=== PATIENT | female | born 1960 | race African-American/Black ===

== ENCOUNTER 2018-10-28 10:21 | Emergency (ER) | payer BC ==
[2018-10-28] MEDS ORDERED: KEPPRA 1,000 MG/NS 0.75% 100ML 1,000 MG/100 ML BAG IV ONE (10:55)
--- NOTE | 2018-10-28 11:01 | Emergency Department Report ---
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 Patient brought to the emergency room via EMS for evaluation after seizure-like activity. Patient daughter described patient passing out and started jerking for approximately one minutes and then went to sleep. She also described that her eyes rolling back. Patient now is alert, oriented 3 in no acute distress. Patient denied any headache, any weakness numbness or tingling sensation. She stated that she does not remember exactly what happened. MD Complaint: possible seizure -: Sudden Description of Episode: loss of consciousness, tonic-clonic movement, post-event confusion Witnessed:: Yes Trauma: No Seizure History: none Place: home Possible Precipitating Event: none Associated Symptoms: denies other symptoms Treatments Prior to Arrival: none - Related Data Allergies Allergy/AdvReac Type Severity Reaction Status Date / Time No Known Allergies Allergy Unverified 01/15/18 17:19 ED Review of Systems ROS: Stated complaint: SEIZURE Other details as noted in HPI Comment: All other systems reviewed and negative Constitutional: denies: chills, fever Respiratory: denies: cough, orthopnea, shortness of breath, SOB with exertion, SOB at rest Cardiovascular: denies: chest pain, palpitations Gastrointestinal: denies: abdominal pain, nausea, vomiting Musculoskeletal: denies: back pain Neurological: denies: headache, weakness, numbness, paresthesias, confusion ED Past Medical Hx - Past Medical History Previous Medical History?: Yes Hx CVA: Yes Additional medical history: denies - Surgical History Additional Surgical History: denies - Social History Smoking Status: Never Smoker Substance Use Type: None ED Physical Exam - General Limitations: No Limitations General appearance: alert, in no apparent distress - Head Head exam: Present: atraumatic, normocephalic, normal inspection - Eye Eye exam: Present: normal appearance, PERRL - ENT ENT exam: Present: normal exam, normal orophraynx, mucous membranes moist - Neck Neck exam: Present: normal inspection, full ROM. Absent: tenderness, meningismus, lymphadenopathy, thyromegaly - Respiratory Respiratory exam: Present: normal lung sounds bilaterally - Cardiovascular Cardiovascular Exam: Present: regular rate, normal rhythm, normal heart sounds - GI/Abdominal GI/Abdominal exam: Present: soft, normal bowel sounds. Absent: distended, tenderness, guarding, rebound, rigid, organomegaly, mass, bruit, pulsatile mass, hernia - Extremities Exam Extremities exam: Present: normal inspection, full ROM, normal capillary refill. Absent: pedal edema, calf tenderness - Back Exam Back exam: Present: normal inspection, full ROM. Absent: CVA tenderness (R), CVA tenderness (L), muscle spasm, paraspinal tenderness, vertebral tenderness, rash noted - Neurological Exam Neurological exam: Present: alert, oriented X3, CN II-XII intact, motor sensory deficit (left upper lower extremity weakness, residual) - Psychiatric Psychiatric exam: Present: normal mood - Skin Skin exam: Present: warm, intact, normal color ED Course Vital Signs 10/28/18 10:41 Temperature 98.5 F Pulse Rate 90 Respiratory 16 Rate Blood Pressure 138/94 O2 Sat by Pulse 97 Oximetry ED Medical Decision Making - Lab Data Result diagrams: 10/28/18 12:07 10/28/18 12:07 - EKG Data -: EKG Interpreted by Oh EKG shows normal: sinus rhythm Rate: normal - EKG Data Interpretation: no acute changes - Radiology Data Radiology results: report reviewed CT brain is unremarkable for acute finding. 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 Patient brought to the emergency room via EMS for evaluation after seizure-like activity. Patient daughter described patient passing out and started jerking for approximately one minutes and then went to sleep. She also described that her eyes rolling back. Patient now is alert, oriented 3 in no acute distress. Patient denied any headache, any weakness numbness or tingling sensation. She stated that she does not remember exactly what happened. Labs reviewed that is unremarkable. EKG showing sinus rhythm. CT brain is un remarkable for acute finding. I believe patient's symptoms is new onset seizure most likely secondary to her recent CVA. Patient receive 1 g of Keppra IV in the emergency room. Patient will be discharged home with Keppra 500 mg twice a day and advised to follow-up with her neurologist in the next 2-3 days and to return to the ER if she develop any new symptoms. Critical care attestation.: If time is entered above; I have spent that time in minutes in the direct care of this critically ill patient, excluding procedure time. ED Disposition Clinical Impression: Seizure Disposition: DC-01 TO HOME OR SELFCARE Is pt being admited?: No Condition: Stable Instructions: New-Onset Seizure in Adults (ED) Referrals: PRIMARY CARE, [Primary Care Provider] - 3-5 Days
[2018-10-28 12:21] LABS: Basophils % (Auto) 0.2 % (0.0-1.8); Eosinophils # (Auto) 0.1 K/mm3 (0.0-0.4); Eosinophils % (Auto) 0.9 % (0.0-4.3); Hematocrit 34.6 % (30.3-42.9); Hemoglobin 11.5 gm/dl (10.1-14.3); Lymphocytes # (Auto) 0.8 K/mm3 (1.2-5.4); Lymphocytes % (Auto) 7.6 % (13.4-35.0); Mean Corpuscular HGB Conc 33 % (30-34); Mean Corpuscular Volume 81 fl (79-97); Monocytes # (Auto) 0.5 K/mm3 (0.0-0.8); Monocytes % (Auto) 5.4 % (0.0-7.3); Platelet Count 293 K/mm3 (140-440); Red Blood Count 4.28 M/mm3 (3.65-5.03); Red Cell Distribution Width 14.7 % (13.2-15.2)
--- NOTE | 2018-10-28 12:25 | Cat Scan Report ---
CT HEAD WITHOUT CONTRAST INDICATION / CLINICAL INFORMATION: Seizure/history of brain aneurysm, no surgery. TECHNIQUE: Axial imaging performed from the skull apex through the skull base without the use of cont rast. Sagittal and coronal reformatted images. All CT scans at this location are performed using CT dose reduction for ALARA by means of automated exposure control. COMPARISON: 01/15/2018 FINDINGS: CEREBRAL PARENCHYMA: Chronic hemorrhagic infarct in the right frontoparietal region measures 4.4 x 3. 2 cm in axial plane. There are mild nonspecific chronic white matter changes bilaterally. Otherwise t he brain parenchyma is within normal limits. HEMORRHAGE: None. EXTRA-AXIAL SPACES: Normal in size and morphology for the patient's age. VENTRICULAR SYSTEM: Normal in size and morphology for the patient's age. MIDLINE SHIFT OR HERNIATION: None. CEREBELLUM / BRAINSTEM: No significant abnormality. CALVARIUM: No significant abnormality. Surgical changes in the bridge of the nose are noted. ORBITS: Normal as visualized. PARANASAL SINUSES / MASTOID AIR CELLS: Normal as visualized. SOFT TISSUES of HEAD: No significant abnormality. ADDITIONAL FINDINGS: None. IMPRESSION: Chronic infarct in the right MCA distribution. Mild chronic white matter changes. No acute intracranial process is identified. Signer Name: Ady Wall Jr, MD Signed: 10/28/2018 12:08 PM Workstation Name: [id number]
[2018-10-28 12:44] LABS: Alanine Aminotransferase 16 units/L (7-56); Albumin 3.4 g/dL (3.9-5); BUN/Creatinine Ratio 20; Blood Urea Nitrogen 10 mg/dL (7-17); Calcium 8.4 mg/dL (8.4-10.2); Hemolysis Index 4
[2018-10-28 12:48] LABS: Bilirubin,Direct < 0.2 mg/dL (0-0.2)
[2018-10-28 13:26] VITALS: BP 132/89
== END 2018-10-28 13:26 | disposition home or self-care (01) ==
LOC: ED 10:21
DX: R56.9 Unspecified convulsions (principal); Z86.73 Personal history of transient ischemic attack (TIA), and cerebral infarction without residual deficits
CPT/HCPCS: 36415; 70450; 80048; 80076; 85025; 93005; 93010; 96365; 99285; J1953